=== PATIENT | male | born 1955 | race Caucasian/White ===

== ENCOUNTER 2017-05-24 20:09 | Inpatient (IN) | payer SELFPAY ==
[2017-05-24] MEDS ORDERED: Vancomycin(*) 1,000 MG in NS 0.9% 250 ML* 250 ML IVPB ONE (22:46)
[2017-05-25 00:50] LABS: INR 1.44 (0.77-1.02)
[2017-05-25 01:04] LABS: ABS Basophils 0 10^3/ul (0-0.2); ABS Eosinophils 0 10^3/ul (0-0.6); ABS Lymphocytes 1.4 10^3/ul (1.0-4.8); ABS Monocytes 0.7 10^3/ul (0-0.8); ABS Neutrophils 14.8 10^3/ul (1.5-7.7); Hematocrit 33 % (42-52); Mean Corpuscular HGB Conc 33 g/dl (31-36); Mean Corpuscular Hemoglobin 30 pg (27-31); Mean Corpuscular Volume 89 fL (80-94); Red Blood Count 3.72 10^6/ul (4.0-5.4); Red Cell Distribution Width 15 % (10.5-15); White Blood Count 16.9 10^3/ul (3.5-10.8)
[2017-05-25] MEDS ORDERED: Aspirin Low Dose CHEW TAB* 81 MG PO ONE (01:21)
[2017-05-25] MEDS ORDERED: Furosemide IV* 10 MG/ML VIAL (40 MG) IV ONE (01:21)
--- NOTE | 2017-05-25 01:36 | ED ---
Cassie Knox Thomas, scribed for Rose Moctezuma MD on 05/24/17 at 2315 . Complex/Multi-Sys Presentation - HPI Summary HPI Summary: The patient is a 62 year old male presenting with a productive cough for the last two weeks. He complains of mid back pain. Per family, compared to baseline , in the last few weeks he has decreased mobility, memory problems and confusion. He has a history of an ankle deformity. - History Of Current Complaint Chief Complaint: EDGeneral Time Seen by Provider: 05/24/17 22:06 Hx Obtained From: Patient Onset/Duration: Lasting Weeks - 2, Still Present Timing: Constant Severity Currently: Mild Location: Pain At: - mid back Associated Signs And Symptoms: Positive: Other - Cough, decreased mobility, memory problems, confusion - Allergies/Home Medications Allergies/Adverse Reactions: Allergies Allergy/AdvReac Type Severity Reaction Status Date / Time hydrochlorothiazide Allergy Unknown Verified 05/24/17 20:20 Reaction Details thiazide Allergy See Comment Uncoded 05/06/15 13:23 PMH/Surg Hx/FS Hx/Imm Hx Endocrine/Hematology History: Denies: Hx Diabetes Cardiovascular History: Reports: Hx Hypertension Respiratory History: Reports: Hx Pneumonia Musculoskeletal History: Reports: Other Musculoskeletal History - Hx annkle deformity Sensory History: Reports: Hx Contacts or Glasses Opthamlomology History: Reports: Hx Contacts or Glasses Psychiatric History: Reports: Hx Depression Infectious Disease History: No Infectious Disease History: Denies: Traveled Outside the [place] in Last 30 Days - Family History Known Family History: Positive: Other - Patient denies relevant FHx - Social History Alcohol Use: Occasionally Hx Substance Use: No Substance Use Type: Reports: None Hx Tobacco Use: No Smoking Status (MU): Never Smoked Tobacco Review of Systems Positive: Cough Positive: Other - Mid back pain Neurological: Other - Confusion, memory problems All Other Systems Reviewed And Are Negative: Yes Physical Exam - Summary Physical Exam Summary: VITAL SIGNS: Reviewed. GENERAL: Patient is a morbidly obese, unkempt male who is lying comfortable in the stretcher. Patient is not in any acute respiratory distress. HEAD AND FACE: No signs of trauma. No ecchymosis, hematomas or skull depressions. No sinus tenderness. EYES: PERRLA, EOMI x 2, No injected conjunctiva, no nystagmus. EARS: Hearing grossly intact. Ear canals and tympanic membranes are within normal limits. MOUTH: Oropharynx within normal limits. NECK: Supple, trachea is midline, no adenopathy, no JVD, no carotid bruit, no c- spine tenderness, neck with full ROM. CHEST: Symmetric, no tenderness at palpation LUNGS: Decreased breath sounds. Clear to auscultation bilaterally. No wheezing or crackles. CVS: Regular rate and rhythm, S1 and S2 present, no murmurs or gallops appreciated. ABDOMEN: He has an umbilical hernia. Soft, non-tender. No signs of distention. No rebound no guarding, and no masses palpated. Bowel sounds are normal. EXTREMITIES: FROM in all major joints, no edema, no cyanosis or clubbing. NEURO: Alert and oriented x 3. No acute neurological deficits. Speech is normal and follows commands. SKIN: 3 inch x 1.5 inch second degree ulcer over the left leg. It is foul- smelling. Triage Information Reviewed: Yes Vital Signs On Initial Exam: Initial Vitals Temp Pulse Resp BP Pulse Ox 99.3 F 110 16 124/34 95 05/24/17 20:14 05/24/17 20:14 05/24/17 20:14 05/24/17 20:14 05/24/17 20:14 Vital Signs Reviewed: Yes Diagnostics - Vital Signs Vital Signs Temp Pulse Resp BP Pulse Ox 05/24/17 20:14 99.3 F 110 16 124/34 95 - Laboratory Result Diagrams: 05/25/17 00:08 05/25/17 00:08 Lab Statement: Any lab studies that have been ordered have been reviewed, and results considered in the medical decision making process. - Radiology CXR Xray Interpretation: No Acute Changes - Cardiomegaly/CHF. Radiology Interpretation Completed By: ED Physician - EKG 01:22 EKG Interpretation: Junctional rhythm at [address] T-wave changes. Complex Multi-Symp Course/Dx Assessment/Plan: The patient is a 62 year old male presenting with a productive cough for the last two weeks. He complains of mid back pain. Per family, compared to baseline, in the last few weeks he has decreased mobility, memory problems and confusion. The patient was given vancomycin, ASA, and Lasix. CXR shows cardiomegaly/CHF. Bloodwork was obtained. EKG shows junctional rhythm with nonspecific ST T-wave changes. The patient is admitted to Dr. Matt with fair condition. - Diagnoses Provider Diagnoses: CHF (congestive heart failure), Left leg cellulitis with infected ulcer, Renal insufficiency, Elevated troponin - Physician Notifications Discussed Care Of Patient With: Padma Barney Time Discussed With Above Provider: 01:33 Instructed by Provider To: Admit As Inpatient Discharge - Sign-Out/Discharge Documenting (check all that apply): Discharge - Discharge Plan Condition: Fair Disposition: ADMITTED TO [facility] Referrals: Vladimir Gonzalez, INHALATION THERAPY AIDES TEACHER [Primary Care Provider] - The documentation as recorded by the Cassie saunders Thomas accurately reflects the service I personally performed and the decisions made by me, Rose Moctezuma MD.
[2017-05-25 01:44] LABS: ABS Nucleated RBC 0 10^3/ul; Eosinophil % 0.2 % (0-6); Lymphocyte % 8.2 % (25-47); Mean Platelet Volume 10 um3 (7.4-10.4); Nucleated Red Blood Cells % 0; Platelet Count 93 10^3/ul (150-450)
[2017-05-25] MEDS ORDERED: oxyCODONE/Acetamin 5/325 MG* TAB PO PRN (02:51)
[2017-05-25] MEDS ORDERED: Al Hydrox/Mg Hydrox/Simet LIQ* 30 ML UDC PO PRN (02:51)
[2017-05-25] MEDS ORDERED: Docusate CAP* 100 MG PO PRN (02:51)
[2017-05-25] MEDS ORDERED: Ondansetron INJ* 2 MG/ML VIAL IV PRN (02:51)
[2017-05-25] MEDS ORDERED: Senna TAB PO PRN (02:51)
[2017-05-25] MEDS ORDERED: Acetaminophen TAB* 325 MG PO PRN (02:51)
[2017-05-25] MEDS ORDERED: NS 0.9% 1000 ML* 1,000 ML IV ONE (02:56)
[2017-05-25] MEDS ORDERED: Iodixanol* (CONTRAST) 320 MG/ML 100 ML SDV IV ONE (03:05)
[2017-05-25] MEDS ORDERED: Vancomycin per Pharmacy* NOTE FOLLOW UP PRN (03:38)
[2017-05-25] MEDS ORDERED: metroNIDAZOLE IV 500 MG/100ML* 500 MG/100 ML BAG IVPB SCH (04:00)
[2017-05-25] MEDS ORDERED: Vancomycin(*) 1,000 MG in NS 0.9% 250 ML* 250 ML IVPB ONE (04:00)
[2017-05-25 04:01] LABS: Urine Appearance Cloudy; Urine Blood Negative (Negative); Urine Color Yellow; Urine Ketones Negative (Negative); Urine Protein Negative (Negative); Urine Specific Gravity 1.014 (1.010-1.030); Urine Urobilinogen Negative (Negative)
[2017-05-25] MEDS: Cefepime 2 GM in Dextrose(*) 2 GM/50 ML BAG IV SCH ×2 (04:36→16:37)
[2017-05-25 05:04] LABS: ABS Basophils 0.1 10^3/ul (0-0.2); ABS Eosinophils 0 10^3/ul (0-0.6); ABS Lymphocytes 1.4 10^3/ul (1.0-4.8); ABS Neutrophils 15.2 10^3/ul (1.5-7.7); ABS Nucleated RBC 0 10^3/ul; Eosinophil % 0.2 % (0-6); Hematocrit 30 % (42-52); Hemoglobin 10.1 g/dl (14.0-18.0); Lymphocyte % 8.1 % (25-47); Mean Corpuscular HGB Conc 33 g/dl (31-36); Mean Corpuscular Hemoglobin 30 pg (27-31); Mean Corpuscular Volume 89 fL (80-94); Mean Platelet Volume 9 um3 (7.4-10.4); Nucleated Red Blood Cells % 0; Platelet Count 98 10^3/ul (150-450); Red Blood Count 3.43 10^6/ul (4.0-5.4); Red Cell Distribution Width 14 % (10.5-15); White Blood Count 17.7 10^3/ul (3.5-10.8)
[2017-05-25 05:19] LABS: EGFR Non-African American 49.6 (>60)
[2017-05-25] MEDS: Heparin VIAL(*) 5000 UNITS/ML VIAL (FIVE THOUSAND) SUBCUT SCH ×3 (05:26→22:15)
[2017-05-25] MEDS ORDERED: NS 0.9% 1000 ML* 1,000 ML IV SCH (06:00)
--- NOTE | 2017-05-25 07:19 | RAD ---
INDICATION: Shortness of breath. COMPARISON: Comparison is made with prior chest x-ray study from May 05, 2015. TECHNIQUE: A portable view of the chest was obtained. FINDINGS: The heart is mildly enlarged and unchanged from the prior exam. The lungs are clear. No pleural effusion is seen. IMPRESSION: NO EVIDENCE FOR ACUTE DISEASE.
[2017-05-25] MEDS ORDERED: Perflutren Lipid Microsphere* 3 ML VIAL ONE (07:48)
[2017-05-25] MEDS ORDERED: Vancomycin(*) 1,500 MG in NS 0.9% 250 ML* 250 ML IVPB SCH (08:00)
--- NOTE | 2017-05-25 08:03 | RAD ---
Indication: Evaluate for pulmonary embolus, chest pain. CTA of the chest was performed after IV contrast administration. Coronal and sagittal reconstructed images were obtained. The pulmonary arterial tree is well opacified. Motion artifact limits evaluation of the bases. No obvious filling defects are noted in the pulmonary arteries. The thoracic aorta demonstrates no evidence of aneurysmal dilatation or thoracic aortic dissection. Inferior thyroid lobes are unremarkable. The heart demonstrates no pericardial effusion. The trachea and major bronchi appear patent. No evidence of alveolar consolidation is noted. No pleural fluid is identified. The axilla demonstrates no evidence of abnormal adenopathy. Visualized abdominal organs are grossly unremarkable. Likely cyst noted in both kidneys however motion artifact makes it difficult to characterize fully. The thoracic bony structures demonstrates mild compression of the lower thoracic spine age of which is undetermined. Healed rib fractures are noted in the ribs bilaterally. IMPRESSION: No definite pulmonary embolus is noted. No evidence of aortic dissection is noted. Old rib fractures and degenerative changes of the spine are noted.
[2017-05-25] MEDS: Venlafaxine EXT RELEASE CAP* 37.5 MG PO SCH (08:55)
--- NOTE | 2017-05-25 09:18 | ECHO ---
Patient: CATALINA SKAGGS [facility] Rec#: [id number] : 1955 Date: 05/25/2017 Age: 62y Height: 182.88 cm / 72.0 in Weight: 138.35 kg / 304.9 lbs Sex: M BSA: 2.55 Room#: [facility] Admit Date#: 05/25/2017 Type: Inpatient Referring: Padma Barney Reading: Veronica Chu MD Extension Forester: Winter Bowden RDCS CC: Vladimir Gonzalez NP Transthoracic Echocardiogram Indication: Elevated troponins, sepsis BP: 123/37 HR: 92 Rhythm: NSR with PVCs Findings History: HTN, BLAKE on CPAP, ETOH use. Technical Comments: The study is technically difficult. The study is technically limited due to poor acoustic windows. The study is technically limited due to patient body habitus. Completed at 0900. Left Ventricle: The left ventricular chamber size is normal. Mild concentric left ventricular hypertrophy is observed. Basal interventricular septum shows moderate thickening. Global left ventricular wall motion and contractility are within normal limits. The left ventricle appears hyperdynamic. The estimated ejection fraction is 60-65%. There is septal flattening of the interventricular septum consistent with right ventricular volume or pressure overload. There is no consistent Doppler evidence of clinically significant diastolic dysfunction. Left Atrium: The left atrium is severely dilated. Right Ventricle: The right ventricle is mildly dilated. The right ventricular global systolic function is mildly to moderately reduced. Right Atrium: The right atrium is moderately dilated. Aortic Valve: The aortic valve structure is not well visualized. There is severe aortic regurgitation. There is no evidence of aortic stenosis. The measured aortic regurgitation pressure half-time is 141.32 msec. Mitral Valve: The mitral valve leaflets are mildly thickened. There is trace to mild mitral regurgitation. There is no evidence of mitral stenosis. Tricuspid Valve: The tricuspid valve leaflets are normal. There is mild to moderate tricuspid regurgitation. The right ventricular systolic pressure is estimated at 39 mmHg. There is evidence of mild pulmonary hypertension. There is no tricuspid stenosis. Pulmonic Valve: The pulmonic valve structure is not well visualized. There is trace to mild pulmonic regurgitation. There is no pulmonic stenosis. Pericardium: There is no significant pericardial effusion. A pericardial fat pad is visualized. Aorta: There is no dilatation of the ascending aorta. There is no dilatation of the aortic arch. The aortic root is normal in size. Pulmonary Artery: The main pulmonary artery is not well visualized. Venous: The inferior vena cava is dilated. There is an approximate 50% respiratory change in the inferior vena cava dimension. Contrast: Definity was used to optimize study. 3 mL of diluted Definity was utilized. Intravenous contrast was used to enhance endocardial border definition. Conclusions Obese body habitus limits image quality, endocardium well Mild concentric left ventricular hypertrophy is observed. There is septal flattening of the interventricular septum consistent with right ventricular volume or pressure overload. Global left ventricular wall motion and contractility are within normal limits with normal to hyperdynamic contractility. LVEF 60-65% The right ventricle is mildly dilated. The right ventricular global systolic function is mildly to moderately reduced. There is severe aortic regurgitation, reversal of flow in the descending and abdominal aorta. Inadequate visualization of the aortic valve to evaluate for vegetations or abcess. There is trace to mild mitral regurgitation. There is mild to moderate tricuspid regurgitation. There is evidence of mild pulmonary hypertension estimated at 39 mmHg. The inferior vena cava is dilated. Compared with the echo of 02/08/17, prior LVH was moderate/severe, RV function was low normal, prior AI was mild to moderate, MR and TR not significantly changed. Recommendation: GIRISH (transesophogeal echo) to evaluate aortic valve for vegetations, abcess, etiology of aortic insufficiency. Measurements Name Value Normal Range RVIDd (AP) 2D 3.2 cm (0.9 - 2.6) RVDdMajor (2D) 4.5 cm (2.2 - 4.4) RAd ISD 4CH 5.5 cm (3.4 - 4.9) RA (A4C)W 4.4 cm (2.9 - 4.6) IVSd (2D) 1.2 cm (0.6 - 1) LVPWd (2D) 1.2 cm (0.6 - 1) LVIDd (2D) 5.1 cm (3.6 - 5.4) LVIDs (2D) 4.2 cm - LV FS (2D) 40 % (25 - 45) Aortic Annulus 2.8 cm (1.4 - 2.6) Ao root diameter (2D) 3.4 cm (2.1 - 3.5) Ascending Ao 3.4 cm (2.1 - 3.4) Aortic arch 2.3 cm (1.8 - 3.4) LA dimension (AP) 2D 4.9 cm (2.3 - 3.8) LAd ISD 4CH 7 cm (2.9 - 5.3) LA ISD 4CH W 5.6 cm (2.5 - 4.5) Name Value Normal Range LA ESV SP 4CH (A/L) 116 ml - LA ESV SP 2CH (A/L) 129 ml - LA ESV BP (A/L) 124 ml - LA ESV BP (A/L) index 48 ml/m2 - LA ESV SP 4CH (MOD) 107 ml - LA ESV SP 2CH (MOD) 119 ml - Name Value Normal Range MV E-wave Vmax 1.4 m/sec - MV deceleration time 93.95 msec - MV A-wave Vmax 0.97 m/sec - MV E:A ratio 1.44 ratio - LV septal e' Vmax 0.13 m/sec - LV lateral e' Vmax 0.19 m/sec - LV E:e' septal ratio 10.77 ratio - LV E:e' lateral ratio 7.36 ratio - Name Value Normal Range AV Vmax 2.3 m/sec - AV VTI 41.31 cm - AV peak gradient 20.68 mmHg - AV mean gradient 11.1 mmHg - LVOT Vmax 1.55 m/sec - LVOT VTI 29.14 cm - LVOT peak gradient 9.68 mmHg - LVOT mean gradient 5.14 mmHg - AR PHT 141.32 msec - AR peak gradient 56.7 mmHg - Name Value Normal Range TR Vmax 2.8 m/sec - TR peak gradient 31 mmHg - RAP 8 mmHg - RVSP 39 mmHg - IVC diameter 3.4 cm - Name Value Normal Range PV Vmax 0.9 m/sec - PV peak gradient 3.26 mmHg - LA end-diastolic Vmax 1.56 m/sec -
[2017-05-25] MEDS ORDERED: Famotidine IV* 10 MG/ML 2 ML (20 mg) IV ONE (09:37)
--- NOTE | 2017-05-25 10:06 | CONS ---
CC: Vladimir Gonzalez NP; Hospitalist service * CARDIOLOGY CONSULTATION NOTE DATE OF CONSULT: 05/25/17 REASON FOR CONSULTATION: Elevated troponins and junctional rhythm. CHIEF COMPLAINT: Shortness of breath. HISTORY OF PRESENT ILLNESS: Mr. Johnson is a 62-year-old male with no prior cardiac history. He presented to the hospital because of progressive shortness of breath. He said he was just deteriorating and came in. The patient admits he had a cough productive of white sputum. He denied orthopnea or PND, but was getting winded with any exertion. ED notes also document that his family reported decreased mobility, memory, and confusion. The patient was found to have a cellulitis of the left lower extremity, renal insufficiency, anemia, and has been treated with antibiotics. The patient states that overnight, his breathing's a little bit better. He denies ever having had chest pain, pressure, heaviness, neck, arm or jaw pain, or anginal equivalent other than the shortness of breath. He denies fevers, chills, sweats. PAST MEDICAL HISTORY: The patient has a past medical history of hypertension. He denies diabetes or coronary disease or dysrhythmias. It's positive for an ankle injury/deformity in the past. He has a history of lymphedema of the legs , obstructive sleep apnea with CPAP. Cellulitis May 2015. Morbid obesity. He has hyponatremia, in the past on hydrochlorothiazide. History of depression. Lower extremity ulcerations followed in the wound clinic. Peripheral vascular disease; arterial study 2015 showed mild dampening of the right dorsalis pedis waveforms. ALLERGIES/INTOLERANCES: Include hydrochlorothiazide (hyponatremia). CURRENT INPATIENT MEDICATIONS: Include 1. Maalox prn. 2. Cefepime 2 grams q 12 hours. 3. Colace. 4. Heparin 5000 units subcu q 8 hours. 5. Flagyl 500 mg q 12 hours. 6. Zofran prn. 7. Percocet prn. 8. Vancomycin. 9. Senna prn. 10. Sodium chloride 125 cc/hour. 11. Effexor 37.5 mg a day. 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 He smoked in the distant past. FAMILY HISTORY: Significant in that both parents of heart attacks in their early 70s. He said his sister has no health problems. REVIEW OF SYSTEMS: Positive for the shortness of breath, cough productive of white sputum. Negative for chest pain, orthopnea, PND. Positive for lower extremity edema, confusion and memory. All other 14-point review of systems unremarkable; see history of present illness. PHYSICAL EXAMINATION: On exam, the patient is 6 ft tall, weighs 309 lbs with a BMI of 42. Vital signs on arrival to the ED yesterday - blood pressure 124/34, pulse 110, respiratory rate 16, oxygen saturations on room air 95%, and temperature 99.3. Currently, in the ICU, temperature 97.4, heart rate 91, respiratory rate 28-35, oxygen saturation 94%. General appearance - morbidly obese, somewhat older gentleman lying flat, but quite tachypneic. Psychologically, pleasant and cooperative. Neurologically, awake, alert and oriented to person and place. I did not evaluate for time. A little vague on some answers, suggestive of some mild confusion. Speech was articulate. Comprehension appeared good. He answered appropriately, and followed commands well. Skin - red haired, complexion fair. I did not appreciate rashes on the face or trunk. The left lower extremity had a dressing on over the cellulitis, and this was not fully examined. HEENT - pupils equal and round, mucous membranes moist. Neck - thick from obesity. Palpable carotid pulses without bruits. Breath sounds were clear but tachypneic. No wheezing, rales or rhonchi. Coronary - S1, S2, regular; hard to hear because of tachypnea, but systolic murmur heard at the apex. Abdomen - very overweight; again, hard to examine. Active bowel sounds, non-tender, no obvious bruits. The left lower extremity is markedly edematous, much larger than the right lower extremity; dressing on, again. STUDIES: LABS - white count 17.7, hemoglobin 10, hematocrit 30, platelets 98, INR 1.44, sodium 130, potassium 3.7, chloride 105, bicarb 15, BUN 52, creatinine 1.45 (baseline creatinine in 2016 was 0.74, and baseline BUN in 2016 was 12). Troponin #1 was 0.33; troponin #2 was 0.34. C-reactive protein 128. Total cholesterol 70, triglycerides 66, LDL 45, HDL 11.6. Urinalysis was 3+ leukocyte esterase, 3+ white cells, 2+ red cells, positive for bacteria and epithelial cells. Ketones negative and nitrate negative. Wound culture from right leg grew staph aureus. Any other cultures done are pending. Chest x-ray from 05/24/17 showed no active disease. CT angiogram of chest was reported as no definite pulmonary embolus, no dissection, old rib fracture and degenerative changes of the spine noted. A cyst was noted in each kidney, but motion artifact noted as well. A 12-lead ECG shows a junctional rhythm 99 beats/minute with retrograde P waves. He has flattened T waves in the inferior and lateral leads diffusely. When this is compared with an EKG from 2016, the junctional rhythm replaces sinus tachycardia at 115 beats/minute. At that time, he had an incomplete right bundle branch block and T waves were upright. Echocardiogram - full report to follow; but, preliminarily, he has preserved left ventricular systolic function, mild mitral insufficiency, significant aortic insufficiency, and right ventricular hypokinesis. He has no evidence of mild pulmonary hypertension. The study, due to his body habitus, was suboptimal for visualization of any mass or endocarditis of the leaflets. IN SUMMARY: Arturo Johnson is a 62-year-old gentleman who presented because of worsening dyspnea and, per his family, confusion, and he appears to be septic with elevated white count, low bicarb with probable cellulitis, but possible bacteremia or septicemia as well. 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 The patient has a junctional tachycardia as well as a mild elevation in troponins and atherosclerotic risks of morbid obesity, sleep apnea, family history of atherosclerotic disease. In the differential for the elevated troponins would be DVT and pulmonary embolus. The CT angiogram is reassuring, but I agree with looking at his left lower extremity for possible DVT. From a cardiac standpoint, I would, for now, manage his antibiotic for endocarditis. I would recommend a transesophageal echo to evaluate more extensively the involvement of the aortic valve, ensure there is no abscess with the junctional tachycardia, and I would recommend this being done with anesthesia, and carefully because of his tachypnea and acid base issues. For the patient's elevated troponins, when the patient's sepsis is stabilized, we could look into ischemic workup but right now I'm more concerned of demand ischemia, possible embolic phenomenon from his endocarditis, and possible small pulmonary emboli or an RV strain. Overall, Mr. Johnson is very ill, a very high-risk patient. I recommended ICU and ID involvement and contacted Dr. Dhillon and Dr. Fady García. The patient's anemia and acid base status and renal function studies are abnormal and contributing to cardiac stress, but we'll leave the management of this to the production material handler. Thank you for allowing me to assist in this nice gentleman's care. ADDENDUM: Transthoracic echo and transesophogeal echo demonstrated severe aortic insufficiency, the GIRISH showed vegetations on the mitral valve and on the aortic valve. As per verbal discussions with Dr. Dhillon and Dr García, I recommmend transfer to a center with valve surgury capability, his aortic insufficiency will not be tolerated for long and he is a very high risk patient. [id number] #: [id number] MTDD
--- NOTE | 2017-05-25 10:31 | HP ---
CC: Vladimir Gonzalez NP * DATE OF ADMISSION: 05/25/17. PRIMARY CARE PHYSICIAN: Vladimir Gonzalez NP CHIEF COMPLAINT: Malaise and congestion. HISTORY OF PRESENT ILLNESS: This is a 62-year-old male with a past medical history of chronic edema, morbidly obese, who presents to the emergency room for complaints of shortness of breath. On my evaluation, patient states his biggest concern is his lack of energy and his congestion that has been going on for the past few weeks. He has had a cough off and on, intermittently short of breath, mostly with exertion. No chest pain. o nausea or vomiting. No abdominal pain. No urinary symptoms. No fevers or chills. He denies any changes in his weight over the last six months. He denies orthopnea. He states he has had a wound in his left lower extremity that has been going on for the past month. He did see his primary care physician who recommended an GERMÁN wrap. Otherwise, remainder of review of systems is negative. In the emergency room patient had labs and imaging. He was given aspirin, Lasix 40 mg, a liter of fluid, and vancomycin, and was referred to the hospitalist service for further evaluation. PAST MEDICAL HISTORY: 1. Morbidly obese. 2. Chronic lymphedema lower extremities. 3. Obstructive sleep apnea, on CPAP. 4. Depression. 5. History of congenital foot abnormalities. 6. History of hypokalemia. MEDICATIONS: 1. Effexor 37.5 mg p.o. daily. 2. Potassium chloride 20 mEq p.o. daily. ALLERGIES: HYDROCHLOROTHIAZIDE. FAMILY HISTORY: Reviewed and noncontributory. SOCIAL HISTORY: Patient lives with his sister. He ambulates with a cane. 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 No tobacco use. He states he has 3 to 4 drinks over a week. He has a health care proxy, but he cannot remember her name. CODE STATUS: Full code. REVIEW OF SYSTEMS: A 14-point review of systems as mentioned in the HPI, otherwise negative. PHYSICAL EXAMINATION GENERAL: Appears tachypneic, morbidly-obese male. VITAL SIGNS: Temp 97.6, pulse rate 90, respiratory rate varies from 20 to 40, oxygen saturation 100% on room air, blood pressure 124/42. HEENT: Head normocephalic. Pupils equal and reactive, anicteric. Oropharynx: Mucous membranes are moist. NECK: Supple, no lymphadenopathy. RESPIRATORY: Diminished breath sounds. No wheezes, rhonchi, or rales. CARDIAC: Tachycardia. Soft systolic murmur heard throughout. ABDOMEN: Morbidly obese, soft, nontender. EXTREMITIES: Patient with lower extremity chronic lymphedema, and his left left lower extremity is more pronounced with edema and erythema, and he has a 4- 5 cm ulcerated necrotic open wound with +1 DP's bilaterally. NEUROLOGIC: Alert and oriented x3. No gross focal neurologic deficits. LABORATORY DATA: White count 16.9, hemoglobin 11.0, hematocrit 33, platelets 73. INR 1.44. Sodium 130, potassium 3.7, chloride 104, bicarb 15, BUN 53, creatinine 1.55, glucose 115, troponin 0.34, CRP 127, BMP 13.07, albumin 2.7. Radiographic Data: Chest x-ray wet read - some mild prominent interstitial marking. EKG: Questionable junctional rhythm. No significant ST changes. ASSESSMENT AND PLAN: This is a 62-year-old male with a past medical history of morbid obesity with chronic lymphedema, who presents to the emergency room for malaise and shortness of breath. 1. Malaise and shortness of breath. Assessment: The patient appears tachypneic. He denies shortness of breath to me. He does have a white count. There is no finding of a focal infiltrate on wet read of his chest x-ray. I am concerned for underlying pulmonary emboli in the setting of his lower extremity ulcer and swelling and possibility of a DVT. He also has an elevated Troponin, which could be suggestive of right heart strain, could be demand ischemia, less likely NSTEMI as he has no chest pain and no significant EKG findings other than a junctional rhythm. Plan: We will admit him to the intensive care unit, and will get a CTA of the chest and determine if he should get full anticoagulation from there. We will also order an echocardiogram and trend his troponin. 2. Lower extremity ulcer. Assessment: The patient with a rather large left lower extremity ulcer with surrounding erythema and edema. There is concern for cellulitis and also sepsis, and also possibility of a DVT. Plan: We will continue him on Vanco. We will add cefepime and Flagyl. We will check a wound culture and place a wound care consult. 3. Acute kidney injury. Likely in the setting of the sepsis and prerenal azotemia. We will give him a liter of fluid and continue IV fluids, renally dose his meds, and repeat his labs in the morning. 4. Elevated troponin. Assessment: As mentioned, likely demand ischemia, could be right heart strain from underlying pulmonary emboli, less likely an NSTEMI. We will hold-off anticoagulation until he gets a CT of the chest. He has no chest pain. No significant EKG findings. Order an echo and cardiology consult. 5. Chronic medical problems. Obstructive sleep apnea, continue his CPAP. Depression, continue his Effexor. Hypokalemia, we will hold his potassium chloride for now. 6. FEN. We will place patient on a low-salt, heart-healthy diet with IV fluids. 7. DVT prophylaxis. The patient scores high risk. We will determine a CTA, and if he has no PE we will place him on heparin subcu t.i.d. 8. Code status. Full code. PATIENT TIME: Greater than 60 minutes were spent doing history and physical, more than half the time spent in direct patient contact. [id number]/[facility] #: [id number] LYNN
--- NOTE | 2017-05-25 10:50 | RAD ---
INDICATION: LEFT leg pain and edema. COMPARISON: June 17, 2011 TECHNIQUE: Clancy scale, color Doppler, and spectral analysis of the deep veins of the LEFT lower extremity. Vessel compression, phasicity, and augmentation assessed. REPORT: Large body habitus limits acoustic window. There is nonocclusive chronic appearing hyperechoic marginated and septated thrombosis from the LEFT common femoral vein through the profunda femoral, femoral, popliteal, and paired posterior tibial veins. The peroneal veins could not be visualized. Patent great saphenous vein at the saphenous femoral confluence. 3.4 x 1.1 x 2.5 cm popliteal cyst documented. Normal morphology upper normal size LEFT inguinal lymph nodes measuring up to 1.1 cm short axis diameter. Patency of the RIGHT common femoral vein documented. IMPRESSION: 1. Extensive nonocclusive chronic LEFT lower extremity deep venous thrombosis. No compelling acute LEFT lower extremity DVT evident. 2. Small LEFT popliteal cyst.
--- NOTE | 2017-05-25 11:30 | PN ---
Progress Note - Progress Note Date of Service: 05/25/17 Note: CRITICAL CARE MEDICINE Date: 05/25/17 Time: 1040 SUBJECTIVE: Patient seen and examined. PHYSICAL EXAM: Vital Signs: Reviewed. Hr about 100. placed on O2 and Hr down to 80s. bp stable to soft. rr variable Neurologic: awake, communicating, nonfocal, no pronator drift nor asterixis, but perhaps a very mild encephalopathy that he is aware of HEENT: pupils equal. EOMI. Sclera anicteric. Trachea midline. Cardiovascular: S1 S2, 3/6 diastolic m of AI. Respiratory: clear, but with tachypnea at time. when sleeping, signs of blake apparent and lateral excursion morphological association of morbid obesity. no rales. Abdomen: Obese, soft, nt. No r/g/r. Extremities: Warm. chronic changes. dressing on left leg with larger girth mild warmth and erythema. Access: piv LABS: Reviewed. IMAGING: Reviewed. MEDICATIONS: Reviewed. ASSESSMENT: 62 M Severe sepsis sec to cellulitis - likely MSSA +/- UTI as ua pos, cx pending Mild septic encephalopathy - more due to acid load and slow clearance perhaps H/o Mod AI now seeming more severe and with more subacute indolent leg infection perhaps leading to IE - plans for JAZZY Acute kidney injury sec to above Hyponatremia - more component of depletion > then perhaps siadh. Anemia, thrombocytopenia of acute inflammation Morbid obesity h/o BLAKE PLAN: Neurologic: no acute needs other then current tx. Cardiovascular: perfusing but demands still up a bit. would like to lessen demands, hence O2 supplementation and 1/2/1/2 bicarb gtt to dissipate acid demand and clearance and allow equilibration of AI. Don't need him working. For jazzy later today and should stabilize for such and need to sort out if any change in plans needs post jazzy dx. Still can use fluids for R heart patency of flow. Respiratory: Suppl O2 to support acid clearance. lungs without acute insult but need to alleviate acid. needs his cpap nocturnally and while sleeping. Gastrointestinal: stable, npo for jazzy. diet post. Renal/Metabolic: nikolai - fluids and perfusion. f/u acid clearance. Infectious Disease: ID consult. currently with C4, vanco, flagyl. for jazzy and then can downregulate off vanco, flagyl and perhaps lessen C4 to narrow coverage with cx soon. Hematology: f/u counts. chronic dvt. Endocrine: check cortisol and tsh. Musculoskeletal: f/u wounds and avoid deconditioning. Psych/Social: pt expressed understanding of plans. Supportive and preventative care as ordered. SUP: H2 VTE prophylaxis: heparin Marino catheter given critical illness, monitoring needs for accurate assessment of NIKOLAI and KDIGO criteria for critically ill patients and to avoid potential harms of urinary retention, skin breakdown/ulcers. Disposition: ICU Code Status: Full Critical Care Time: 35min FDara Muller DO
[2017-05-25] MEDS ORDERED: Sodium Bicarbonate 8.4% 75 MEQ in HNS 0.45% 1000 ML BAG IV ONE (12:00)
[2017-05-25] MEDS ORDERED: Midazolam* 1 MG/ML 5 ML VIAL (5 MG) ONE (14:13)
[2017-05-25] MEDS ORDERED: fentaNYL* 50 MCG/ML 2 ML VIAL (100 MCG VIAL) ONE (14:13)
[2017-05-25] MEDS ORDERED: KETAMINE HCL* 50 MG/ML 10 ML VIAL ONE (14:13)
[2017-05-25] MEDS ORDERED: Atracurium* 10 MG/ML 10 ML VIAL ONE (14:52)
[2017-05-25] MEDS ORDERED: PROCHLORPERAZINE INJ 5 MG/ML 2 ML VIAL ONE (15:20)
[2017-05-25] MEDS ORDERED: Ondansetron INJ* 2 MG/ML VIAL ONE (15:20)
[2017-05-25] MEDS ORDERED: Propofol* 10 MG/ML 20 ML BTL IV PUSH ONE (15:20)
[2017-05-25] MEDS ORDERED: Glycopyrrolate IV* 0.2 MG/ML 1 ML VIAL ONE (15:20)
[2017-05-25] MEDS ORDERED: Neostigmine Methylsulfate* 1 MG/ML 10 ML VIAL (1 mg/ml) ONE (15:20)
[2017-05-25] MEDS ORDERED: EPHEDrine (Pressors)* 50 MG/ML VIAL ONE (15:21)
[2017-05-25] MEDS ORDERED: Flumazenil* 0.1 MG/ML 5 ML MDV ONE (15:30)
--- NOTE | 2017-05-25 17:02 | TEE ---
Patient: CATALINA SKAGGS [facility] Rec#: [id number] : 1955 Date: 05/25/2017 Age: 62y Height: 183 cm / 72.0 in Weight: 140.3 kg / 309.2 lbs Sex: M BSA: 2.57 Room#: [facility] Admit Date#: 05/25/2017 Type: Inpatient Referring: Veronica Chu MD Performing: Veronica Chu MD Reading: Veronica Chu MD Prn Physical Therapist: Winter Bowden RDCS Nurse: Brooklyn Perla CC: Vladimir Gonzalez NP Transesophageal Echocardiogram Indication: Endocarditis, AV disorder BP: 102/52 HR: 100 Rhythm: Tachycardia Findings History: HTN, BLAKE with CPAP, ETOH use, severe AI 05/25/17. Patient was intubated during the procedure. Sedation was administrated by anesthesiologist, Dr. Fritz. Technical Comments: The study quality is good. Left Ventricle: The left ventricular chamber size is normal. Global left ventricular wall motion and contractility are within normal limits. There is normal left ventricular systolic function. The estimated ejection fraction is 55-60%. The assessment of diastolic function is non-diagnostic. Left Atrium: The left atrium is severely dilated. The left atrial appendage velocity is normal. No thrombus is visualized within the left atrium. There is no thrombus visualized in the left atrial appendage. Right Ventricle: The right ventricle is mildly dilated. The right ventricular global systolic function is mildly to moderately reduced. Right Atrium: The right atrium is moderately dilated. Interatrial septum appears intact without evidence of shunting. There were late bubbles seen in the left atrium. A patent foramen ovale is not demonstrated with color Doppler and agitated contrast. Aortic Valve: The aortic valve is trileaflet. The aortic valve leaflets are mildly thickened. Systolic excursion of the aortic valve is normal. There is severe aortic regurgitation. There is no evidence of aortic stenosis. A mass is visualized on the aortic valve which appears consistent with a vegetation.1.6 cm x, 1.3 cm, looks pre valve on long axis view, long, highly mobile shaggy appearance. Mitral Valve: The mitral valve leaflets are moderately thickened. There is moderate mitral regurgitation. multiple jets, one eccentric wall jet. There is no evidence of mitral stenosis. A mass is visualized on the mitral valve which appears consistent with a vegetation.1.0 cm x 1.3 cm, globular,irregular. Tricuspid Valve: The tricuspid valve leaflets are normal. There is moderate tricuspid regurgitation. There is evidence of mild pulmonary hypertension. There is no tricuspid stenosis. No vegetation is observed on the tricuspid valve. Pulmonic Valve: The pulmonic valve appears normal. There is a trace pulmonic regurgitation. There is no pulmonic stenosis. No vegetation is observed on the pulmonic valve. Pericardium: There is no significant pericardial effusion. Aorta: There is no dilatation of the ascending aorta. The aortic root is normal in size. There is plaque visualized in the transverse aorta. There is minimal atherosclerotic plaque in the visualized segments of the aorta. Pulmonary Artery: The main pulmonary artery appears normal. Venous: The bicaval view was obtained and appears normal. The pulmonary veins appear normal. 3 of 4 visualized. The pulmonary veins appear normal in size. GIRISH Procedures: All standard views were attempted within the limitations of patient tolerance and safety. History and physical as well as labs were reviewed. The patient was in a fasting state. Risks and benefits of the procedure, including alternatives, were discussed and written informed consent was obtained. The patient and/or their health care jewelry sales representative expressed understanding of the procedure, risks and benefits. Baseline and continuous monitoring of blood pressure, heart rate, pulse oximetry and heart rhythm was performed throughout the procedure. The appropriate time-out procedure was performed as per [facility] protocol. The patient was placed in the supine position. Sedation administered by the anesthesiologist in the operating room. See anesthesiology report for medications administered. The multiplane transesophageal echocardiogram probe was inserted through the posterior oropharynx and advanced into the esophagus without difficulty. Multiple 2D images were obtained of the heart and its related structures. Color flow Doppler was used for evaluation. Spectral Doppler was also used. The atrial septum was interrogated with color flow Doppler. At the conclusion of the procedure the probe was removed with continuous suction without complications. The patient tolerated the procedure with no apparent complications. Contrast: Normal saline was used as contrast for the bubble study. Image 63. Intravenous contrast was used to help determine presence of intracardiac shunting. Conclusions Global left ventricular wall motion and contractility are within normal limits. The estimated ejection fraction is 55-60%. The right ventricular global systolic function is mildly to moderately reduced. There were late bubbles seen in the left atrium. A mass is visualized on the aortic valve which appears consistent with a vegetation.1.6 cm x, 1.3 cm, looks pre valve on long axis view, long, highly mobile shaggy appearance. There is severe aortic regurgitation, reversal of flow in descending aorta.. A mass is visualized on the mitral valve which appears consistent with a vegetation.1.0 cm x 1.3 cm, globular,irregular. There is moderate mitral regurgitation. multiple jets, one eccentric wall jet. There is moderate tricuspid regurgitation. See transthoracic echo done earlier, this study shows vegetations as the etiology for AI and MR. Measurements Name Value Normal Range Aortic Annulus 2.7 cm (1.4 - 2.6) Ao root diameter (2D) 3.4 cm (2.1 - 3.5) Ascending Ao 3 cm (2.1 - 3.4) Name Value Normal Range MV E-wave Vmax 1.04 m/sec -
--- NOTE | 2017-05-26 00:18 | CONS ---
CONSULTATION REPORT: DATE OF CONSULT: 05/25/17. REQUESTING PROVIDER: Veronica Chu MD. CONSULTING SERVICE: Infectious Disease. REASON FOR CONSULTATION: Question endocarditis. IMPRESSION: 1. 12 weeks of progressive dyspnea on exertion and at rest, as well as a cough. No fevers, chills, sweats or anorexia and has been more fatigued. A transthoracic echocardiogram showed severe aortic insufficiency this morning, one done in March showed moderate aortic insufficiency. Differential diagnosis includes infective endocarditis causing progression of his aortic insufficiency; however, he really has not had much in the way of systemic symptoms recently as far as he can tell us. So, it is also possible he had progression of aortic valve disease unrelated to infection. He does have left lower extremity cellulitis and wound infection which could explain his elevated C-reactive protein and his tachypnea and sepsis. It also would be a potential source for seeding the valve if there is a heart valve infection. 2. Morbid obesity. 3. Aortic insufficiency, now severe. 4. Chronic bilateral lower extremity lymphedema. RECOMMENDATIONS: . Continue cefepime. We will start vancomycin and Flagyl. The left leg wound grew Staphylococcus aureus, methicillin sensitive. 2. He is going to have transesophageal echocardiogram today, which will define this aortic valve process. 3. Follow up the blood cultures. HISTORY OF PRESENT ILLNESS: This is a 62-year-old male with obesity, aortic insufficiency, admitted with progressive dyspnea. He has had it for about two weeks initially with exertion, now with rest. He has had some cough, which was nonproductive. He has not been on antibiotics recently. He has had a left lower extremity wound off and on for what sounds like a couple of months. 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 He denies any recent fevers, chills, sweats or anorexia. Has noted more fatigue along with his shortness of breath and slightly more swelling in both legs. He does have sleep apnea, uses CPAP, not 100% of the time. When he got here last night, he had a white count of 16,000, platelet count 30,000, troponin 0.3, CRP of 127. He was started on vancomycin, cefepime, and Flagyl. Wound cultures taken from the left leg ulceration is growing gram positive cocci in clusters and was noted to come from a right leg wound, but I believe it was from the left. The PCR is positive for Staphylococcus aureus and negative for MRSA. He has had no fever here. He was tachypneic. He was started on supplemental oxygen, given Lasix. He had a transthoracic echocardiogram that showed aortic insufficiency, which was severe. Ejection fraction is 60% to 65%. Pulmonary hypertension, mild. Right ventricular volume or pressure overload. CT of the chest showed no infiltrate or pulmonary embolus. This morning he denies any pain, shortness of breath is better. He is reading the paper. Denies chest pain, cough, abdominal pain, diarrhea, or headache. No back pain. PAST MEDICAL HISTORY: 1. Morbid obesity. 2. Obstructive sleep apnea on CPAP. 3. Chronic lymphedema both lower extremities. 4. Depression. 5. Congenital foot anomaly. 6. Hypokalemia. MEDICATIONS: 1. Tylenol. 2. Aspirin. 3. Docusate. 4. Famotidine. 5. Heparin subcutaneous injection. 6. Cefepime 2 g every 12 hours. 7. Zofran. 8. Flagyl 500 mg every 8 hours. 9. Vancomycin. 10. Effexor. 11. Senna. ALLERGY: HYDROCHLOROTHIAZIDE. FAMILY HISTORY: No recurrent infections. 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 He lives in [place]. No travel or sick contacts. No injections drugs. REVIEW OF SYSTEMS: A 14-point review of systems was negative except as noted above. PHYSICAL EXAM: Vital Signs: Temperature is 36, hear rate is 90, respiratory rate is 13, blood pressure 100/92, oxygen saturation 99% on room air. In general, he is awake, not in distress. Neurologic: He is oriented x2. Follows all commands. His extremity sensation is intact to light touch in both feet. HEENT: There is no conjunctival hemorrhage. Oropharynx: Without lesions. Neck: Supple without mass. Lymph nodes: No inguinal, axillary, or epitrochlear lymphadenopathy. Heart: Regular rate and rhythm with a systolic murmur though hard to hear I think given his body habitus. Lungs: Clear to auscultation bilaterally. Abdomen: Soft, nontender, nondistended. There are bowel sounds present. Skin: There is no rash or splinter hemorrhage. Musculoskeletal: There is no spine tenderness to palpation. There is bilateral lower extremity left grater than right lymphedema with a left anterior lower leg wound of about 4 cm, superficial, underlying fibrinous slough , surrounding mild erythema, serous drainage, no foul odor. LABORATORY DATA: Creatinine 1.4. BUN 52, troponin 0.3. White blood cell count 17, hemoglobin 10, MCV 89, platelets 98. Please see impressions and recommendations outlined above, which I discussed with Dr. Muller and Dr. Chu. Thank you for asking me to see Mr. Johnson in consultation. [id number]/[facility] #: [id number] [facility] MEDICAL CENTERDori
[2017-05-26] MEDS: Cefepime 2 GM in Dextrose(*) 2 GM/50 ML BAG IV SCH (03:26)
[2017-05-26] MEDS: Heparin VIAL(*) 5000 UNITS/ML VIAL (FIVE THOUSAND) SUBCUT SCH ×2 (06:13→14:58)
[2017-05-26] MEDS ORDERED: Collagenase 250 MG/GM OINT* 30 GM TOPICAL SCH (09:00)
[2017-05-26] MEDS: Venlafaxine EXT RELEASE CAP* 37.5 MG PO SCH (09:58)
[2017-05-26] MEDS ORDERED: Furosemide IV* 10 MG/ML VIAL (40 MG) IV SLOW PU ONE (10:00)
--- NOTE | 2017-05-26 10:37 | PN ---
Progress Note - Progress Note Date of Service: 05/26/17 SOAP: Subjective: CC: endocarditis HPI: 62 year old man with chronic left leg wound and associated cellulitis, on no abx as outpt, admitted with dyspnea and malaise. Elevated troponin and progression of AI on TTE. GIRISH showed severe AI and AV, MV vegetations. He denies fever, chills, sweats, anorexia and did not have them before admission. Dyspnea improved, no cough. Objective: Vital Signs Temp 37.3 C 05/26/17 07:57 Pulse 86 05/26/17 09:00 Resp 35 05/26/17 09:00 BP 117/55 05/26/17 09:00 Pulse Ox 98 05/26/17 09:00 Intake & Output 05/25/17 05/26/17 05/26/17 18:59 06:59 18:59 Intake Total 1556 1183 Output Total 275 600 Balance 1281 583 Weight 314 lb 9.594 oz Intake: IV Fluids 1206 950 .45NS W/NA BICARB 200 823 LR 300 NS (0.9%) 706 127 IVPB 113 NS (0.9%) 113 Oral 350 120 Output: Urine 275 600 Other: Estimated Void Medium Estimated Stool Amount Small General:awaken, no distress HEENT:no thrush, no conj hemorrhage Neck: no mass or LN Heart:RRR no murmur appreciated Lungs:CTA BL Abd:+BS NTND soft Skin: no rash MSK: no spine tenderness; no joint synovitis; Left lower anterior leg 3 cm round superficial ulceration surrounding erythema no odor or drainage Laboratory Results - last 24 hr 05/25/17 05/25/17 05/25/17 00:08 03:14 04:58 Hem Pathologist Commnt Sodium 130 L Potassium 3.5 Chloride 105 Carbon Dioxide 15 L Anion Gap 10 BUN 52 H Creatinine 1.45 H Est GFR ( Amer) 63.8 Est GFR (Non-Af Amer) 49.6 BUN/Creatinine Ratio 35.9 H Glucose 122 H Calcium 8.5 L Troponin I 0.33 H* Triglycerides 66 Cholesterol 70 LDL Cholesterol 45 HDL Cholesterol 11.6 TSH 1.63 Cancelled Cortisol 23.88 Microbiology 05/25/17 00:19 Aerobic Blood Culture - Preliminary Blood Venous No Growth Day 1 Anaerobic Blood Culture - Preliminary Blood MRSA/MSSA (PCR) - Final Mrsa Negative S.aureus Negative 05/25/17 00:08 Aerobic Blood Culture - Preliminary Blood Venous No Growth Day 1 Anaerobic Blood Culture - Preliminary No Growth Day 1 05/25/17 04:30 Skin and Soft Tissue MRSA/MSSA (PCR - Final Leg Right Mrsa Negative S.aureus Positive Gram Stain - Final 05/25/17 04:30 Nasal Screen MRSA (PCR)(DARIEN) - Final Nasal Mrsa Not Detected Assessment: 1. Infective endocarditis; AV and MV vegetation, severe AI, no evidence of left heart failure. Cultures 1 of 4 bottles GPC (SA PCR neg) could be contaminant or the cause of infection, culture pending. Wound grew Staph aureus which could have seeded the valve but unusual not to grow it in . Wound was full of cat hair, ?Pasteurella. May be culture neg IE vs merantic endocarditis 2. Left leg non pressure related ulcer with associated cellulitis, wound culture grew MSSA. 3. Morbid obesity 4. elevated right heart pressure/volume 5. bilateral LE lymphedema and venous stasis changes 6. Leukocytosis and thrombocytopenia 7. Elevated CRP Plan: 1. Change cefepime to ceftriaxone 2 gm daily, will restart vancomycin goal tr 15 -20 2. Culture negative IE serologies. 3. Cardiology consultation re consideration of aortic valve replacement
[2017-05-26] MEDS ORDERED: Vancomycin(*) 2,000 MG in NS 0.9% 500 ML* 500 ML IVPB ONE (11:00)
--- NOTE | 2017-05-26 11:12 | PN ---
Progress Note - Progress Note Date of Service: 05/26/17 Note: CRITICAL CARE MEDICINE Date: 05/26/17 Time: 925 SUBJECTIVE: Patient seen and examined. discussed his jazzy. PHYSICAL EXAM: Vital Signs: Reviewed. Hr 90s. O2 but not really wearing. still with high rr but variable Neurologic: awake, communicating, nonfocal, holds capacity HEENT: pupils equal. Sclera anicteric. Trachea midline. Cardiovascular: S1 S2, 3/6 diastolic m of AI. Respiratory: clear, but with tachypnea. blake. Abdomen: Obese, soft, nt. No r/g/r. Extremities: Warm. chronic changes. left leg with mild warmth and erythema. Access: piv LABS: Reviewed. IMAGING: Reviewed. MEDICATIONS: Reviewed. ASSESSMENT: 62 M Severe sepsis sec to cellulitis - likely MSSA but culture neg thusfar +/- UTI as ua pos, cx pending Endocarditis of Aortic and Mitral valves Severe AI Mild septic encephalopathy Acute kidney injury on admission Anemia, thrombocytopenia of acute inflammation Morbid obesity h/o BLAKE PLAN: Neurologic: no acute needs, but should obtain imaging prior to surgical needs of course Cardiovascular: perfusing but still tachy. allow fluid equilibration. we discussed his dx at length and need to seek tertiary care for ct surgery needs/ opinion. Respiratory: Suppl O2 for now. cpap nocturnally. Gastrointestinal: stable, po diet Renal/Metabolic: nikolai. check labs. f/u acid clearance. Infectious Disease: ID following. C3 and vanco for now. f/u other cx. Hematology: f/u counts. chronic dvt. hsq Endocrine: stable Musculoskeletal: f/u wounds and avoid deconditioning. Psych/Social: pt expressed understanding of plans and is thinking about where to go and will d/w sister and make decision. Supportive and preventative care as ordered. SUP: H2 VTE prophylaxis: heparin Marino catheter given critical illness, monitoring needs for accurate assessment of NIKOLAI and KDIGO criteria for critically ill patients and to avoid potential harms of urinary retention, skin breakdown/ulcers. Disposition: ICU and looking for transfer Code Status: Full Critical Care Time: 35min Haja Muller DO
[2017-05-26] MEDS ORDERED: Furosemide IV* 10 MG/ML VIAL (40 MG) ONE (11:37)
[2017-05-26 11:53] LABS: ABS Basophils 0.1 10^3/ul (0-0.2); ABS Eosinophils 0.1 10^3/ul (0-0.6); ABS Lymphocytes 1.4 10^3/ul (1.0-4.8); ABS Monocytes 0.6 10^3/ul (0-0.8); ABS Neutrophils 16.4 10^3/ul (1.5-7.7); ABS Nucleated RBC 0 10^3/ul; Eosinophil % 0.3 % (0-6); Hematocrit 33 % (42-52); Hemoglobin 10.6 g/dl (14.0-18.0); Lymphocyte % 7.3 % (25-47); Mean Corpuscular HGB Conc 32 g/dl (31-36); Mean Corpuscular Hemoglobin 29 pg (27-31); Mean Corpuscular Volume 90 fL (80-94); Mean Platelet Volume 9.8 um3 (7.4-10.4); Nucleated Red Blood Cells % 0; Platelet Count 113 10^3/ul (150-450); Red Blood Count 3.62 10^6/ul (4.0-5.4); Red Cell Distribution Width 15 % (10.5-15); White Blood Count 18.4 10^3/ul (3.5-10.8)
[2017-05-26 11:59] LABS: EGFR Non-African American 61.2 (>60)
--- NOTE | 2017-05-26 13:33 | PN ---
Progress Note - Progress Note Date of Service: 05/26/17 Note: CRITICAL CARE MEDICINE Date: 05/26/17 Time: 1320 D/w pt again now the third time, and sister here as well. Again, asking about his preferences for cardiac surgery center. Explained we could try [facility] and see what they say, but not a great candidate for them, and can consider [facility] and [facility]. He gives his preference for [facility] and did explain to him about potential ambulance transfer fees. He expressed understanding. Called [facility] and they are contacting Dr. Mccullough who will get back to me. Disposition: looking for transfer Code Status: Full Critical Care Time: 15min F. Oj Muller, DO
--- NOTE | 2017-05-26 13:51 | DS ---
CRITICAL CARE MEDICINE DISCHARGE SUMMARY ADMISSION DATE: 05/25/2017 ICU ADMISSION DATE: 05/25/2017 ICU DISCHARGE DATE: 05/26/2017 PRIMARY CARE PROVIDER: Oracio Gonzalez NP. REFERRING PHYSICIAN: Jose Elias. DIAGNOSIS: 1. Severe sepsis secondary to endocarditis and to cellulitis. 2. Endocarditis of Aortic and Mitral valves. 3. Severe aortic insufficiency. 4. Mild septic encephalopathy on admission. 5. Acute kidney injury on admission. 6. Anemia of acute inflammation. 7. Thrombocytopenia of acute inflammation. 8. Morbid obesity. 9. History of obstructive sleep apnea with cpap use. 10. Junctional rhythm. 11. History of lymphedema and peripheral vascular disease. 12. Congenital lower extremity deformity. 13. Depression. 14. Chronic left lower extremity deep venous thrombosis. MEDICATIONS AT DISCHARGE: Acetaminophen (Tylenol Tab*) 650 mg PO Q4H PRN PRN Reason: FEVER/PAIN Al Hydrox/Mg Hydrox/Simethicone (Maalox Plus*) 30 ml PO Q6H PRN PRN Reason: INDIGESTION Collagenase (Santyl 250 Mg/Gm Oint*) 1 applic TOPICAL DAILY [facility] Last Admin: 05/26/17 09:59 Dose: 1 applic Docusate Sodium (Colace Cap*) 100 mg PO BID PRN PRN Reason: CONSTIPATION Heparin Sodium (Porcine) (Heparin Vial(*)) 5,000 units SUBCUT Q8HR [facility] Last Admin: 05/26/17 06:13 Dose: 5,000 units Vancomycin HCl 2,000 mg/ (Sodium Chloride) 500 mls @ 166.667 mls/hr IVPB ONCE ONE PRN Reason: Protocol Stop: 05/26/17 13:59 Last Admin: 05/26/17 11:34 Dose: 166.667 mls/hr Ceftriaxone Sodium 2,000 mg/ (Sterile Water) 20 mls @ 40 mls/hr IVPB Q24H [facility] Vancomycin HCl 1,500 mg/ (Sodium Chloride) 250 mls @ 166.667 mls/hr IVPB Q12HR [facility] Ondansetron HCl (Zofran Inj*) 4 mg IV Q4H PRN PRN Reason: NAUSEA/VOMITING Oxycodone/Acetaminophen (Percocet 5/325 Tab*) 1 tab PO Q4H PRN PRN Reason: Pain Pharmacy Consult (Vancomycin Per Pharmacy*) 1 note FOLLOW UP . PRN PRN Reason: PER PROTOCOL Pharmacy Profile Note (Vancomycin Trough Check) 1 note FOLLOW UP 0900 ONE Stop: 05/27/17 09:01 Senna (Senokot Tab*) 1 tab PO BID PRN PRN Reason: CONSTIPATION Venlafaxine HCl (Effexor Xr Cap*) 37.5 mg PO DAILY [facility] Last Admin: 05/26/17 09:58 Dose: 37.5 mg ALLERGIES: Hydrochlorothiazide. 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 Slightly altered per his family as well. Treated for cellulitis sepsis and admitted to ICU. Junctional rhythm noted and echocardiogram revealing severe aortic insufficiency. Cardiology consulted. Underwent transesophageal echocardiogram which revealed endocarditis of mitral and aortic valves. He has remained weak during his stay, on supplemental oxygen but breathing remains tachypnic at times. Acute kidney injury improved with gentle fluids but he is not able to mobilize well either. Infectious disease consulted and cultures as below. Remains on vancomycin and ceftriaxone as blood cultures not revealing as of yet. He was distressed hearing about his endocarditis diagnosis and took a long time to reach a decision regarding transferring to tertiary facility. We discussed places and his preference was [facility] in [place]. We discussed his high risk for his surgical needs and his potential mortality with or without surgery. He expressed obvious depression but understanding. Patient' s sister present as well. DISPOSITION: [facility], c/o Dr. Mccullough. DIET: Heart Healthy, but NPO now. ACTIVITY: OOB with assist. CODE STATUS: FULL. SPECIAL INSTRUCTION: Utilize bipap nocturnally. FOLLOW UP: with treating medical service Haja Muller DO
[2017-05-26] MEDS ORDERED: Morphine INJ* 4 MG/ML 1 ML SYRINGE (NEW SYRINGE VERSION) ONE (14:22)
[2017-05-26] MEDS ORDERED: cefTRIAXone 2000 MG SYRINGE IVPB Q24H IVPB SCH ×2 (15:00)
[2017-05-26] MEDS ORDERED: NS 0.9% IV SCH ×2 (15:00)
[2017-05-26] MEDS ORDERED: Morphine INJ* 4 MG/ML 1 ML SYRINGE (NEW SYRINGE VERSION) IV ONE (15:00)
[2017-05-26] MEDS ORDERED: cefTRIAXone(*) 2 GM in NS 0.9% 100 ML* 100 ML IVPB SCH (15:00)
[2017-05-26] MEDS ORDERED: DOPAMINE IV SCH ×2 (15:00)
[2017-05-26] MEDS ORDERED: Succinylcholine* 20 MG/ML 10 ML VIAL ONE (15:11)
[2017-05-26] MEDS ORDERED: Sodium Bicarbonate 8.4% IV* 50 ML VIAL ONE (15:26)
[2017-05-26] MEDS ORDERED: MIDAZOLAM IV ONE (15:26)
[2017-05-26] MEDS ORDERED: EPINEPHrine SYR 0.1 MG/ML* (1:10,000) SYRINGE ONE (15:26)
[2017-05-26] MEDS ORDERED: fentaNYL* 50 MCG/ML 5 ML VIAL (250 MCG VIAL) ONE (15:26)
[2017-05-26] MEDS ORDERED: KETAMINE HCL* 50 MG/ML 10 ML VIAL ONE (15:26)
[2017-05-26] MEDS ORDERED: Midazolam* 1 MG/ML 2 ML VIAL (2 MG) IV SLOW PU ONE (16:01)
[2017-05-26] MEDS: Cisatracurium* 2 MG/ML MDV 5 ML ONE ×2 (16:27→18:00)
--- NOTE | 2017-05-26 16:36 | RAD ---
Indication: Respiratory failure. Right internal jugular vein introducer placement. Single frontal view of the chest performed at 1618 hours was reviewed. Comparison is made with previous exam dated May 24, 2017. No mediastinal shift is noted. Cardiomegaly is noted. Endotracheal tube is in place. Interstitial edema is noted. No definite pneumothorax is noted although a defibrillator pad over the right apex. Orogastric tube is in the stomach. IMPRESSION: CARDIOMEGALY. ENDOTRACHEAL TUBE APPEARS IN PLACE. OROGASTRIC TUBE ALSO APPEARS IN PLACE. INTERSTITIAL EDEMA IS NOTED. NO OBVIOUS PNEUMOTHORAX IS NOTED ALTHOUGH A DEFIBRILLATOR PAD OBSCURES THE RIGHT UPPER LOBE.
[2017-05-26] MEDS ORDERED: Atropine SYRINGE* 0.1 MG/ML 10 ML SYRINGE (1 MG) ONE (16:41)
[2017-05-26 16:48] VITALS: BP 148/113
[2017-05-26] MEDS ORDERED: Midazolam IV for DRIP* 100 MG in NS 0.9% 100 ML* 80 ML IV SCH (17:00)
--- NOTE | 2017-05-26 17:32 | DS ---
ADDENDUM: CRITICAL CARE MEDICINE DISCHARGE SUMMARY ADMISSION DATE: 05/25/2017 ICU ADMISSION DATE: 05/25/2017 ICU DISCHARGE DATE: 05/26/2017 DIAGNOSIS: as below and in addition: 15. Refractory cardiogenic shock due to valvular heart disease 16. Acute hypoxic respiratory failure requiring intubation. 17. Junctional bradycardia. SUMMARY ADDENDUM: Patient accepted for transfer to [facility] but with decompensation prior to transfer. Acute decompensated heart failure secondary to valvular heart disease leading to cardiogenic shock, acute hypoxic respiratory faiure requiring intbation and inotropic agents. Escalating support. Patient with brief cpr needs but stabilized somewhat to attempt transfer, however with asystolic arrest upon helicopter boarding and patient subsequently brought to emergency room with full arrest. With epinephrine and bicarbonate given, patient with pulse but no hope for transfer nor recovery and allowed to pass peacefully with family at bedside. Time of 6:28pm. DISPOSITION: . Haja Muller, DO CRITICAL CARE MEDICINE DISCHARGE SUMMARY ADMISSION DATE: 05/25/2017 ICU ADMISSION DATE: 05/25/2017 ICU DISCHARGE DATE: 05/26/2017 PRIMARY CARE PROVIDER: Oracio Gonzalez NP. REFERRING PHYSICIAN: Jose Elias. DIAGNOSIS: 1. Severe sepsis secondary to endocarditis and to cellulitis. 2. Endocarditis of Aortic and Mitral valves. 3. Severe aortic insufficiency. 4. Mild septic encephalopathy on admission. 5. Acute kidney injury on admission. 6. Anemia of acute inflammation. 7. Thrombocytopenia of acute inflammation. 8. Morbid obesity. 9. History of obstructive sleep apnea with cpap use. 10. Junctional rhythm. 11. History of lymphedema and peripheral vascular disease. 12. Congenital lower extremity deformity. 13. Depression. 14. Chronic left lower extremity deep venous thrombosis. MEDICATIONS AT DISCHARGE: Acetaminophen (Tylenol Tab*) 650 mg PO Q4H PRN PRN Reason: FEVER/PAIN Al Hydrox/Mg Hydrox/Simethicone (Maalox Plus*) 30 ml PO Q6H PRN PRN Reason: INDIGESTION Collagenase (Santyl 250 Mg/Gm Oint*) 1 applic TOPICAL DAILY [facility] Last Admin: 05/26/17 09:59 Dose: 1 applic Docusate Sodium (Colace Cap*) 100 mg PO BID PRN PRN Reason: CONSTIPATION Heparin Sodium (Porcine) (Heparin Vial(*)) 5,000 units SUBCUT Q8HR [facility] Last Admin: 05/26/17 06:13 Dose: 5,000 units Vancomycin HCl 2,000 mg/ (Sodium Chloride) 500 mls @ 166.667 mls/hr IVPB ONCE ONE PRN Reason: Protocol Stop: 05/26/17 13:59 Last Admin: 05/26/17 11:34 Dose: 166.667 mls/hr Ceftriaxone Sodium 2,000 mg/ (Sterile Water) 20 mls @ 40 mls/hr IVPB Q24H [facility] Vancomycin HCl 1,500 mg/ (Sodium Chloride) 250 mls @ 166.667 mls/hr IVPB Q12HR [facility] Ondansetron HCl (Zofran Inj*) 4 mg IV Q4H PRN PRN Reason: NAUSEA/VOMITING Oxycodone/Acetaminophen (Percocet 5/325 Tab*) 1 tab PO Q4H PRN PRN Reason: Pain Pharmacy Consult (Vancomycin Per Pharmacy*) 1 note FOLLOW UP . PRN PRN Reason: PER PROTOCOL Pharmacy Profile Note (Vancomycin Trough Check) 1 note FOLLOW UP 0900 ONE Stop: 05/27/17 09:01 Senna (Senokot Tab*) 1 tab PO BID PRN PRN Reason: CONSTIPATION Venlafaxine HCl (Effexor Xr Cap*) 37.5 mg PO DAILY [facility] Last Admin: 05/26/17 09:58 Dose: 37.5 mg ALLERGIES: Hydrochlorothiazide. 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 Slightly altered per his family as well. Treated for cellulitis sepsis and admitted to ICU. Junctional rhythm noted and echocardiogram revealing severe aortic insufficiency. Cardiology consulted. Underwent transesophageal echocardiogram which revealed endocarditis of mitral and aortic valves. He has remained weak during his stay, on supplemental oxygen but breathing remains tachypnic at times. Acute kidney injury improved with gentle fluids but he is not able to mobilize well either. Infectious disease consulted and cultures as below. Remains on vancomycin and ceftriaxone as blood cultures not revealing as of yet. He was distressed hearing about his endocarditis diagnosis and took a long time to reach a decision regarding transferring to tertiary facility. We discussed places and his preference was [facility] in [place]. We discussed his high risk for his surgical needs and his potential mortality with or without surgery. He expressed obvious depression but understanding. Patient' s sister present as well. DISPOSITION: [facility], c/o Dr. Mccullough. DIET: Heart Healthy, but NPO now. ACTIVITY: OOB with assist. CODE STATUS: FULL. SPECIAL INSTRUCTION: Utilize bipap nocturnally. FOLLOW UP: with treating medical service Haja Muller,
--- NOTE | 2017-05-26 17:32 | PN ---
Progress Note - Progress Note Date of Service: 05/26/17 Note: CRITICAL CARE MEDICINE Date: 05/26/17 Time: 1999 (late entry for ~2:30pm-6:30pm) Pt with episode of nausea and mild vomiting. Feeling a bit weaker with inc rr. family was present still as this was shortly after our conversations regarding transfer acceptance at [facility]. They understood where that was and explained the process to them. When I asked pt about his increased anxiety level now he agreed he was more anxious but sob clearly more prominent. Advised and had resp placce him on bipap to see if he would relax. Nursing noting on monitor, pt with signs of AV dissociation. He was awake but now looking worse with otherwise junctional rhythm. Went to see him and again with AV dissociation appearance. He felt more symptomatic and we were falling behind his metabolic demands. Inc FiO2 from 30% (where sats were 93%) to 100% FIO2. Pacer pads placed on pt and monitoring. May need to pace. Ordered morphine 4mg to see if he could equilibrate his 02 demands and consumption, but clearly heading into cardiogenic shock. Dopamine ordered. Cold on exam and now diaphoretic but still coherent. MV demands escalating. Further signs of slow junctional bradycardia with some escape however with perfusion failure, attempted trasncutaneous pacing at low amps and rate 60. He had some captured sinus with escape beats and maintained rate above 60. Dopamine started and seemed to hold him initially. MV still escalating on vent towards 30lpm. B was holding with sbp >100 but still with poor perfusion and escalating demands. Son had arrived and other family already present and briefly updated: explained the gravity of the situation, now shock ensuing, acute resp failure needing intubation and supports to try and get him transferred to [facility] to see if any further options (although as explained to family there really is not a great emergent options, nor urgent really, but without consideration pt certainly cannot survive this [facility] They expressed understanding and consented to understanding on intubation needs, central line (introducer) and possible transvenous pacemaker. I asked cards to have backup needs of laborer tanbark and temporary wire via fluro if pt can stabilize for a more stable procedure vs just needing blind placement emergently. Pt equilibrated somewhat with bipap and dopamine and we prepared for intubation. dopa increased empirically. Epi at the ready. (see intubation note), but fentanyl 100mcg given with mild affect, another 100mcg after that and 200mcg ketamine. Then as pt still needing, 4mg versed given. 8.0 ett placed. Pt with signs of further juntional bradycaria and perfusion lost and epi ordered. Pulse weak and therefore cpr started and completed about 1min while epi circulated and cpr held with inc hr and perfusion curve. Bp held and Hr even went to accelerated junctional and briefly to junctional tachycardia. (See central line procedure note). Immediate RIJ introducer central line place with potential needs for temporary venous pacer. However HR leveled out with junctional escape rhythm and BP was holding well. ETCO2 mid 20-30s. Pt seemed to maintain for a bit. Called [facility] and updated Dr. Mccullough. Helicopter crew arriving and we thought best, now that epi can work, to place on epi gtt and allow meds to work rather then spending time in laborer tanbark for temporary wire placement. As we started to prepare him for his transfer his Hr slowed intermittently and tried to use backup transcutaneous pacing to avoid longer ventricular pauses. Adjusted amps and even rates, with poor success at capture but pt able to maintain junctional escape. Given atropine with mild response and therefore given sedatives with versed and iv push nimbex to dec consumption and allow transfer. Epi gtt on which seemed again to allow for adequate pulses however not meeting demands still. 2 amps bicarb given. Inc epi gtt and down some on dopamine. When moving and transferring to new transfer vent and post paralytics, his MV was maintaining about 12lpm, but sats dropping on 100%. Hr to junctional bradycardia and worsening perfusion and therefore cpr intiated and epi push given. 2 min circulation and pulse strong again. Hr up again. bag ventilation with sats into low 90s. Epi gtt needing to maintain us. Able to advance to transfer and taken to helicopter pad. Unfortunately, arrest with asystole upon loading and cpr, epi intiatied. brought back to ED with further epi and bicard with pulse regained but family opting to hold further and I advised the same. Pt allowed to pass peacefully with family at bedside. Time of 6:28pm. Discharge diagnosis: Cardiogenic shock due to valvular heart disease Acute hypoxic respiratory failure Severe sepsis secondary to Endocarditis of Aortic and Mitral valves Severe AI Septic encephalopathy Acute kidney injury on admission Anemia, thrombocytopenia of acute inflammation Morbid obesity h/o BLAKE Critical Care Time: 200min, excluding procedures Haja Muller DO
--- NOTE | 2017-05-26 18:37 | DS ---
See notes. Time of 6:28pm Family at bedside.
[2017-05-26] MEDS ORDERED: Vancomycin Trough Check NOTE FOLLOW UP ONE (19:30)
[2017-05-26] MEDS ORDERED: VANCOMYCIN 1500 MG X 1 DOSE, THEN PER PHARMACY PROTOCOL IVPB SCH ×2 (21:00)
--- NOTE | 2017-05-26 21:51 | PN ---
Progress Note - Progress Note Date of Service: 05/26/17 Note: CRITICAL CARE MEDICINE PROCEDURE NOTE - late entry DATE: 05/26/17 TIME: about 3pm SERVICE: Critical Care Medicine LOCATION OF PROCEDURE: ICU PROCEDURE: Endotracheal intubation PROCEDURALIST: Dr. Mullre Consent obtain: Yes, but procedure performed emergently Time out held: Not indicated INDICATION: Acute respiratory failure. see notes PROCEDURE: Oxygenation maintained and vitals monitored. Patient in supine position. Pre-medication with fentanyl 200mcg, ketamine 200mg, versed 4mg. Glidescope #3 inserted with Grade 1 view obtained. 8.0 endotracheal tube inserted to 23cm lip. Good chest rise with breath sounds appreciated in bilaterally lung tanner. EtCO2 + color change. Anticipated epi needs and rosc with 1 min cpr (see code/progress notes) Portable chest x-ray with ett in place. son present throughout. Haja Muller DO
--- NOTE | 2017-05-26 21:53 | PN ---
Progress Note - Progress Note Date of Service: 05/26/17 Note: CRITICAL CARE MEDICINE PROCEDURE NOTE DATE: 05/26/17 TIME: about 3:15pm SERVICE: Critical Care Medicine LOCATION OF PROCEDURE: ICU PROCEDURE: Central line introducer insertion. PROCEDURALIST: Dr. Muller Consent obtain: Yes, but procedure performed emergently Time out held: Yes INDICATION: Cardiogenic shock /junctional bradycardia PROCEDURE: Oxygenation maintained and vitals monitored. Patient in supine position. SITE: RIGHT Internal jugular Site preparation with chlorhexidine locally. Full sterile drape, gown, hat, mask, gloves. 5ml 1% Lidocaine utilized at incision site. Standard sterile Seldinger technique utilized via ultrasound guidance and cook catheter was inserted to 12 cm and sut[address] in place. Good blood return. Minimal blood loss. Site dressed with tegaderm. Portable chest x-ray with line in place. Haja Muller DO
[2017-05-27] MEDS ORDERED: Vancomycin Trough Check NOTE FOLLOW UP ONE (09:00)
== END 2017-05-26 17:45 | disposition expired | DRG 871 ==
LOC: ED 20:09 → ICU 05-25 02:54 → UNDODISIN 05-26 18:57
PROVIDERS: ADMIT Pediatrics; ATTEND Internal Medicine Critical Care Medicine
PROC: 5A09357 Assistance with Respiratory Ventilation, Less than 24 Consecutive Hours, Continuous Positive Airway Pressure (ICD-10-PCS; 2017-05-25)
PROC: B24BZZ4 Ultrasonography of Heart with Aorta, Transesophageal (ICD-10-PCS; principal; 2017-05-25 15:00)
PROC: 5A1935Z Respiratory Ventilation, Less than 24 Consecutive Hours (ICD-10-PCS; 2017-05-26)
PROC: 0BH17EZ Insertion of Endotracheal Airway into Trachea, Via Natural or Artificial Opening (ICD-10-PCS; 2017-05-26)
PROC: 05HM33Z Insertion of Infusion Device into Right Internal Jugular Vein, Percutaneous Approach (ICD-10-PCS; 2017-05-26)
PROC: B543ZZA Ultrasonography of Right Jugular Veins, Guidance (ICD-10-PCS; 2017-05-26)
DX: A41.9 Sepsis, unspecified organism (principal); J96.01 Acute respiratory failure with hypoxia; R57.0 Cardiogenic shock; G93.41 Metabolic encephalopathy; I96 Gangrene, not elsewhere classified; N17.9 Acute kidney failure, unspecified; D69.6 Thrombocytopenia, unspecified; L03.116 Cellulitis of left lower limb; L97.929 Non-pressure chronic ulcer of unspecified part of left lower leg with unspecified severity; Z68.41 Body mass index [BMI] 40.0-44.9, adult; I01.1 Acute rheumatic endocarditis; R00.1 Bradycardia, unspecified; E66.01 Morbid (severe) obesity due to excess calories; R65.20 Severe sepsis without septic shock; I27.20 Pulmonary hypertension, unspecified; G47.33 Obstructive sleep apnea (adult) (pediatric); I10 Essential (primary) hypertension; I89.0 Lymphedema, not elsewhere classified; F32.9 Major depressive disorder, single episode, unspecified; D64.9 Anemia, unspecified; I45.10 Unspecified right bundle-branch block; I08.0 Rheumatic disorders of both mitral and aortic valves; Z88.8 Allergy status to other drugs, medicaments and biological substances; Z87.01 Personal history of pneumonia (recurrent); Q68.8 Other specified congenital musculoskeletal deformities; Z72.89 Other problems related to lifestyle
CPT/HCPCS: 36415; 71045; 71275; 80048; 80053; 80061; 81003; 81015; 82533; 82550; 83036; 83605; 83880; 84443; 84484; 85025; 85060; 85610; 85730; 86140; 86431; 86611; 86638; 87040; 87070; 87077; 87086; 87150; 87186; 87205; 87640; 87641; 93005; 93306; 93312; 93325; 94002; 94660; 99284; A9270-GY; C8929; J0171; J0330; J0461; J0692; J0696; J0780; J1265; J1644; J1940; J2250; J2270; J2405; J2704; J2710; J3010; J3370; J3490; Q9967

== ENCOUNTER 2017-05-26 18:00 | Emergency (ER) | payer SELFPAY ==
[2017-05-26 18:53] VITALS: BP 0/0
--- NOTE | 2017-05-26 19:43 | ED ---
Cardiac Resuscitation - History of Current Complaint Chief Complaint: EDCardiacArrest Stated Complaint: ABC CODE Time Seen by Provider: 05/26/17 19:01 Hx Obtained From: Family/Neckties Painter, EMS, Medical Records - Additional Pertinent History Primary Care Physician: LEATHA - Allergies/Home Medications Allergies/Adverse Reactions: Allergies Allergy/AdvReac Type Severity Reaction Status Date / Time hydrochlorothiazide Allergy Unknown Verified 05/24/17 20:20 Reaction Details Thiazides Allergy hyponatremia Verified 05/25/17 12:18 on [facility] - Vital Signs Vital Signs Temp Pulse Resp BP Pulse Ox 05/26/17 18:51 0 F 0 0 0/0 0 - Laboratory Lab Statement: Any lab studies that have been ordered have been reviewed, and results considered in the medical decision making process. Cardiac Resus. Course/Dx - Course Course Of Treatment: Mr. Johnson was an inpatient in the ICU for cellulitis leading to sepsis leading to endocarditis with aortic and mitral valve insufficiencies. ABC alerts were called twice while he was being prepared for transfer to a higher level of care. He was being transferred into the helicopter on the pad when he coded again with asytole. He was phill into the ED with CPR and ACLS in progress. We continued ACLS protocols while he intermittently gained cardiac acitivity and pulses and lost them again. He had a loud aortic insufficiency murmur with compressions. Dr. Mendenhall arrived and took over the efforts. The family eventually requested that we stop the heroic efforts as they understood the futility. He was pronounced at 1827. I spoke with Dr. Pardo who will contact Dr. Mendenhall tomorrow. - Diagnoses Provider Diagnoses: Cardiopulmonary arrest - Critical Care Time Critical Care Time: 30-74 min Discharge - Sign-Out/Discharge Documenting (check all that apply): Discharge - Discharge Plan Condition: Disposition: Referrals: Vladimir Gonzalez NP [Primary Care Provider] - - Billing Disposition and Condition Condition: Disposition: E
== END 2017-05-26 18:18 | disposition expired ==
LOC: ED 18:00
DX: I46.9 Cardiac arrest, cause unspecified (principal)
CPT/HCPCS: 99285